=== PATIENT | male | born 1945 | race Caucasian/White ===

== ENCOUNTER 2024-01-07 13:06 | Emergency (ER) | payer BC ==
[~2024-01-07] VITALS: Ht 175.3 cm; Wt 67.6 kg
[2024-01-07 13:16] VITALS: BP 135/70; PULSE 103; RESP 13; TEMP 97.6; O2SAT 93
[2024-01-07 13:34] VITALS: O2SAT 92
[2024-01-07 14:34] VITALS: PULSE 97; RESP 22; O2SAT 97
[2024-01-07] MEDS: ALBUTEROL SULFATE/IPRATROPIU 3 ML SOL IH ONE (14:34)
[2024-01-07 14:48] LABS: BASOPHILS # (AUTO) 0.2 K/uL (0.00-0.22); BASOPHILS % (AUTO) 1.2 % (0.0-2.0); EOSINOPHILS % (AUTO) 0.3 % (0.0-4.0); HEMATOCRIT 40.2 % (36-52); HEMOGLOBIN 13.3 g/dL (12.0-18.0); LYMPHOCYTES # (AUTO) 0.5 K/uL (2.0-11.5); LYMPHOCYTES % (AUTO) 2.8 % (20.5-51.1); MEAN CORPUSCULAR HEMOGLOBIN 31 pg (27-31); MEAN CORPUSCULAR HGB CONC 33 g/dL (33-37); MONOCYTES # (AUTO) 0.9 K/uL (0.8-1.0); MONOCYTES % (AUTO) 5.2 % (1.7-9.3); NEUTROPHILS % (AUTO) 90.5 % (42.2-75.2); PLATELET COUNT (AUTO) 173 K/uL (140-450); RED BLOOD CELL COUNT(AUTO) 4.37 MIL/uL (4.20-6.10); RED CELL DISTRIBUTION WIDTH 14.5 % (11.6-13.7); WHITE BLOOD COUNT (AUTO) 17.6 K/uL (4.8-10.8)
[2024-01-07 15:04] LABS: INR 1.11 (0.8-1.2); PARTIAL THROMBOPLASTIN TIME 34.1 secs (22-35.6); PROTHROMBIN TIME 11.5 secs (10.8-13.4)
[2024-01-07] MEDS ORDERED: [UNRECOGNIZED DRUG - CODE] INH (15:35)
[2024-01-07] MEDS ORDERED: LEVO75CA3 PO (15:35)
[2024-01-07] MEDS ORDERED: APIX5TAB PO (15:35)
[2024-01-07] MEDS ORDERED: ALBU0.0912 IH (15:35)
[2024-01-07] MEDS: predniSONE 20 MG TAB PO ONE (15:45)
[2024-01-07 15:47] LABS: CARBON DIOXIDE 34.9 mmol/L (21-32); CHLORIDE 98 mmol/L (98-107); POTASSIUM 4.5 mmol/L (3.5-5.1); SODIUM SERUM 134 mmol/L (136-145)
[2024-01-07 15:48] LABS: ANION GAP 5.6 (8-16); CALCIUM 8.8 mg/dL (8.5-10.1); CREATININE 0.8 mg/dL (0.6-1.3); GLUCOSE 131 mg/dL (74-106); UREA NITROGEN, BLOOD 23 mg/dL (7-18)
[2024-01-07] MEDS ORDERED: CEFEPIME 1,000 MG VIAL ONE (15:54)
[2024-01-07 15:59] LABS: LACTIC ACID 1.7 mmol/L (0.4-2.0)
[2024-01-07] MEDS: CEFEPIME 1,000 MG in DEXTROSE 5% 50 ML IV ONE (16:00)
[2024-01-07] MEDS: NACL 0.9% 1,000 ML IV ONE (16:01)
[2024-01-07 16:12] LABS: BILIRUBIN,DIRECT 0.3 mg/dL (0.0-0.3); TOTAL BILIRUBIN 0.8 mg/dL (0.0-1.0); TOTAL PROTEIN, SERUM 6.5 g/dL (6.4-8.2)
[2024-01-07 16:46] LABS: FLU A ANTIGEN negative (NEGATIVE); FLU B ANTIGEN negative (NEGATIVE)
[2024-01-07 18:11] VITALS: BP 149/74; PULSE 104; RESP 21; TEMP 97.5; O2SAT 91
== END 2024-01-07 18:11 | disposition short-term general hospital (02) ==
LOC: MED 13:06
DX: J18.9 Pneumonia, unspecified organism (principal); J44.1 Chronic obstructive pulmonary disease with (acute) exacerbation; I49.8 Other specified cardiac arrhythmias; D72.829 Elevated white blood cell count, unspecified; R09.02 Hypoxemia; Z20.822 Contact with and (suspected) exposure to COVID-19; Z79.899 Other long term (current) drug therapy; Z79.01 Long term (current) use of anticoagulants
CPT/HCPCS: 36415; 71045; 80048; 80076; 83605; 83880; 84484; 85025; 85610; 85730; 87040; 87186; 87426; 87804; 93005; 94640; 96365; 99285; J0692; J7512; Q0092